=== PATIENT | male | born 1965 | race Caucasian/White ===

== ENCOUNTER 2016-05-12 14:05 | Inpatient (IN) | payer SELFPAY ==
[~2016-05-12] VITALS: Ht 188 cm; Wt 103.9 kg
[2016-05-12 14:52] LABS: HEMATOCRIT 36.9 % (38.0-50.0); MCH 32.4 PG (29.0-34.0); MCHC 36.3 G/DL (30.0-36.0); MCV 89.3 FL (86-99); MEAN PLAT.VOLUME 10.1 uM^3 (9.0-12.4); NRBC (%) 0.6 /100 WBC (0-0); PLATELET COUNT 52 K/uL (156-360); RBC DIS.WIDTH-CV 21.5 % (11.8-14.6); RBC DIS.WIDTH-SD 70.2 % (39-53); RED BLOOD COUNT 4.13 M/uL (4.00-5.50); WHITE BLOOD COUNT 4.6 K/uL (4.1-10.2)
[2016-05-12 15:03] LABS: INTER. NORMALIZED RATIO 1.9; PROTHROMBIN TIME 19.9 (9.2-11.2)
[2016-05-12 15:05] LABS: CHLORIDE 98 mEq/L (99-109); POTASSIUM 2.6 mEq/L (3.7-5.4); SODIUM 134 mEq/L (136-147)
[2016-05-12 15:07] LABS: GLUCOSE 146 mg/dL (70-99)
[2016-05-12 15:08] LABS: ANION GAP 15 MEQ/L (2-14)
[2016-05-12 15:09] LABS: TOTAL BILIRUBIN 8.5 mg/dL (0.0-1.0)
[2016-05-12 15:11] LABS: ALKALINE PHOSPHATASE 219 IU/L (3-129); GFR ESTIMATE (CALCULATED) > 59 mL/min/
[2016-05-12 15:12] LABS: UREA NITROGEN (BUN) 11 mg/dL (9-23)
[2016-05-12 15:13] LABS: TROP-I INTERPRETATION NEGATIVE; TROPONIN-I 0.04 ng/mL (0.0-0.30)
[2016-05-12 15:44] LABS: ANISOCYTOSIS 2+; EOSINOPHIL (%) 0.4 % (0-5); IMMATURE GRANULOCYTE (%) 1.1 % (0.0-0.7); IMMATURE GRANULOCYTE COUNT 0.1 K/uL; INSTRUMENT ABS NEUTROPHIL CT 2.4 K/uL; LYMPHOCYTE COUNT 1.6 K/uL (1.0-2.8); MACROCYTES 2+; MONOCYTE COUNT 0.5 K/uL (0-0.8); NEUTROPHIL (%) 51.6 % (45-76); NEUTROPHIL COUNT 2.4 K/uL (1.8-6.4); POIKILOCYTOSIS 1+
[2016-05-12] MEDS ORDERED: TYLENOL PM1 CAPLET PO (16:51)
[2016-05-12 17:50] LABS: TYPE OF FLUID PERITONEAL
[2016-05-12 18:25] LABS: MAGNESIUM 1.5 mg/dL (1.3-2.7)
[2016-05-12 18:30] LABS: BODY FLUID EOSINOPHILS 0 % (0-25); BODY FLUID RBC'S 2000 /MM^3 (0-100); BODY FLUID WBC'S 56 /MM^3 (0-500); MONONUCLEAR WBC'S 96 %; POLYNUCLEAR WBC'S 4 % (0-25)
[2016-05-12 21:19] VITALS: BP 135/77
[2016-05-12 23:38] VITALS: BP 132/78
[2016-05-13 03:33] VITALS: BP 138/77
[2016-05-13 06:14] LABS: ALKALINE PHOSPHATASE 159 IU/L (3-129); ANION GAP 11 MEQ/L (2-14); CHLORIDE 96 MEQ/L (99-109); DIRECT BILIRUBIN 4.7 mg/dL (0.0-0.3); GFR ESTIMATE (CALCULATED) > 59 mL/min/; POTASSIUM 2.7 MEQ/L (3.7-5.4); SAMPLE HEMOLYSIS CHECK 0; SAMPLE ICTERIC CHECK 2; SAMPLE LIPEMIA CHECK 0; SODIUM 134 MEQ/L (136-147); TOTAL BILIRUBIN 8.9 MG/DL (0.0-1.0); UREA NITROGEN (BUN) 10 mg/dL (9-23)
[2016-05-13 06:16] LABS: GLUCOSE 83 mg/dL (70-99)
[2016-05-13 06:37] LABS: EOSINOPHIL (%) 0.3 % (0-5); HEMATOCRIT 32.1 % (38.0-50.0); INSTRUMENT ABS NEUTROPHIL CT 1.5 K/uL; LYMPHOCYTE COUNT 1.1 K/uL (1.0-2.8); MCH 32.6 PG (29.0-34.0); MCHC 36.4 G/DL (30.0-36.0); MCV 89.4 FL (86-99); MONOCYTE (%) 8.2 % (3-12); MONOCYTE COUNT 0.2 K/uL (0-0.8); NEUTROPHIL COUNT 1.5 K/uL (1.8-6.4); NRBC (%) 0.7 /100 WBC (0-0); RBC DIS.WIDTH-SD 71.2 % (39-53); RED BLOOD COUNT 3.59 M/uL (4.00-5.50)
[2016-05-13 06:39] LABS: WHITE BLOOD COUNT 2.9 K/uL (4.1-10.2)
[2016-05-13 07:27] VITALS: BP 135/83
[2016-05-13 07:38] LABS: HEMATOLOGY COMMENT 1 SN; MEAN PLAT.VOLUME 11.8 uM^3 (9.0-12.4); PLATELET COUNT 31 K/uL (156-360)
[2016-05-13 07:39] LABS: PLAT.SUFFICIENCY VERY DECREASED
[2016-05-13 11:32] VITALS: BP 143/80
[2016-05-13 14:59] LABS: ANION GAP 8 MEQ/L (2-14); CHLORIDE 97 MEQ/L (99-109); GFR ESTIMATE (CALCULATED) > 59 mL/min/; POTASSIUM 3.2 MEQ/L (3.7-5.4); SAMPLE HEMOLYSIS CHECK 0; SAMPLE ICTERIC CHECK 2; SAMPLE LIPEMIA CHECK 0; SODIUM 131 MEQ/L (136-147); UREA NITROGEN (BUN) 10 mg/dL (9-23)
[2016-05-13 15:02] LABS: GLUCOSE 107 mg/dL (70-99)
[2016-05-13 15:52] VITALS: BP 144/86
[2016-05-13 16:41] LABS: TYPE OF FLUID PERITONEAL
[2016-05-13 17:11] LABS: BODY FLUID EOSINOPHILS 0 % (0-25); BODY FLUID RBC'S 3000 /MM^3 (0-100); BODY FLUID WBC'S 188 /MM^3 (0-500); MONONUCLEAR WBC'S 98 %; POLYNUCLEAR WBC'S 2 % (0-25)
[2016-05-13 17:37] LABS: BODY FLUID PROTEIN < 3.0 G/DL
[2016-05-13 20:00] VITALS: BP 158/80
[2016-05-14 01:00] VITALS: BP 143/84
[2016-05-14 04:29] VITALS: BP 137/72
[2016-05-14 07:15] LABS: INTER. NORMALIZED RATIO 2.4; PROTHROMBIN TIME 24.8 (9.2-11.2)
[2016-05-14 07:30] LABS: ALKALINE PHOSPHATASE 173 IU/L (3-129); ANION GAP 8 MEQ/L (2-14); CHLORIDE 100 MEQ/L (99-109); DIRECT BILIRUBIN 5.4 mg/dL (0.0-0.3); GFR ESTIMATE (CALCULATED) > 59 mL/min/; GLUCOSE 84 mg/dL (70-99); POTASSIUM 3.2 MEQ/L (3.7-5.4); SAMPLE HEMOLYSIS CHECK 0; SAMPLE ICTERIC CHECK 2; SAMPLE LIPEMIA CHECK 0; SODIUM 135 MEQ/L (136-147); TOTAL BILIRUBIN 10.3 MG/DL (0.0-1.0); UREA NITROGEN (BUN) 11 mg/dL (9-23)
[2016-05-14 07:33] LABS: HEMATOCRIT 32.9 % (38.0-50.0); MCH 32.7 PG (29.0-34.0); MCHC 35.9 G/DL (30.0-36.0); MCV 91.1 FL (86-99); RBC DIS.WIDTH-CV 21.8 % (11.8-14.6); RBC DIS.WIDTH-SD 72.4 % (39-53); RED BLOOD COUNT 3.61 M/uL (4.00-5.50)
[2016-05-14 07:38] LABS: WHITE BLOOD COUNT 1.9 K/uL (4.1-10.2)
[2016-05-14 07:57] LABS: IMM.PLATELET FRACTION 4.3 (1-7); PLAT.SUFFICIENCY DECREASED
[2016-05-14 08:25] VITALS: BP 128/81
[2016-05-14 09:39] LABS: PLATELET COUNT 27 K/uL (156-360)
[2016-05-14 11:45] VITALS: BP 129/75
[2016-05-14 14:49] LABS: MCH 32.1 PG (29.0-34.0); MCHC 34.6 G/DL (30.0-36.0); MCV 92.8 FL (86-99); NRBC (%) 0.9 /100 WBC (0-0); RBC DIS.WIDTH-CV 22.4 % (11.8-14.6); RBC DIS.WIDTH-SD 75.2 % (39-53); RED BLOOD COUNT 3.77 M/uL (4.00-5.50); WHITE BLOOD COUNT 2.1 K/uL (4.1-10.2)
[2016-05-14 15:59] LABS: ADD MIUA? YES; BILIRUBIN MODERATE; BLOOD MODERATE; GLUCOSE (STRIP) NEGATIVE; KETONES NEGATIVE; LEUKOCYTES TRACE; NITRITE POSITIVE; PROTEIN (STRIP) NEGATIVE
[2016-05-14 16:08] LABS: EOSINOPHIL (%) 0.5 % (0-5); IMM.PLATELET FRACTION 6.5 (1-7); IMMATURE GRANULOCYTE (%) 0.5 % (0.0-0.7); INSTRUMENT ABS NEUTROPHIL CT 1.3 K/uL; LYMPHOCYTE COUNT 0.5 K/uL (1.0-2.8); MONOCYTE (%) 10.3 % (3-12); MONOCYTE COUNT 0.2 K/uL (0-0.8); NEUTROPHIL (%) 62.4 % (45-76); NEUTROPHIL COUNT 1.3 K/uL (1.8-6.4)
[2016-05-14 16:18] LABS: PLATELET COUNT 30 K/uL (156-360)
[2016-05-14 17:02] LABS: COLOR DK YELLOW ((YELLOW))
[2016-05-14 17:19] LABS: ICTOTEST POSITIVE
[2016-05-14 18:16] LABS: EPITHELIAL CELLS RARE /HPF; RED BLOOD CELLS 20-30 /HPF (0-5); WHITE BLOOD CELLS 0-5 /HPF (0-5)
[2016-05-14 18:17] LABS: BACTERIA NONE SEEN /HPF; CASTS NONE SEEN /LPF; CRYSTALS NONE SEEN; MUCUS NONE SEEN /LPF; UCUL ADDED? NO
[2016-05-14 19:39] VITALS: BP 135/84
[2016-05-15 01:02] VITALS: BP 140/78
[2016-05-15 05:06] VITALS: BP 135/78
[2016-05-15 07:49] LABS: ALKALINE PHOSPHATASE 142 IU/L (3-129); ANION GAP 7 MEQ/L (2-14); CHLORIDE 101 MEQ/L (99-109); GFR ESTIMATE (CALCULATED) > 59 mL/min/; GLUCOSE 86 mg/dL (70-99); IRON 160 MCG/DL (35-150); POTASSIUM 3.4 MEQ/L (3.7-5.4); SAMPLE HEMOLYSIS CHECK 0; SAMPLE ICTERIC CHECK 2; SAMPLE LIPEMIA CHECK 0; SODIUM 133 MEQ/L (136-147); TOTAL BILIRUBIN 10.3 MG/DL (0.0-1.0); UREA NITROGEN (BUN) 11 mg/dL (9-23)
[2016-05-15 08:08] LABS: HEMATOCRIT 33.1 % (38.0-50.0); MCH 32.5 PG (29.0-34.0); MCHC 35.3 G/DL (30.0-36.0); MCV 91.9 FL (86-99); RBC DIS.WIDTH-CV 22.1 % (11.8-14.6); WHITE BLOOD COUNT 2.2 K/uL (4.1-10.2)
[2016-05-15 08:16] VITALS: BP 141/81
[2016-05-15 08:22] LABS: IMM.PLATELET FRACTION 4.1 (1-7); PLAT.SUFFICIENCY VERY DECREASED; PLATELET COUNT 24 K/uL (156-360)
[2016-05-15 12:04] VITALS: BP 126/68
[2016-05-15] MEDS ORDERED: SERTRALINE HCL50 MG PO (14:33)
[2016-05-15] MEDS ORDERED: Chronulac,Cephulac,E PO ×2 (14:33→19:22)
[2016-05-15] MEDS ORDERED: XIFAXAN550 MG PO (14:33)
[2016-05-15] MEDS ORDERED: FOLIC ACID1 MG PO (14:33)
[2016-05-15] MEDS ORDERED: PANTOPRAZOLE SO40 MG PO (14:33)
[2016-05-15] MEDS ORDERED: CHLORDIAZEPOXID25 MG PO (14:33)
[2016-05-15 15:13] VITALS: BP 137/68
== END 2016-05-15 16:20 | disposition home or self-care (01) | DRG 433 ==
LOC: EME 14:05 → EDOF 17:56 → 5SOUTH 17:56
PROVIDERS: Anesthesiology; Emergency Medicine; Family Medicine; Internal Medicine; Internal Medicine Gastroenterology; Radiology Diagnostic Radiology
PROC: 0W9G30Z Drainage of Peritoneal Cavity with Drainage Device, Percutaneous Approach (ICD-10-PCS; principal; 2016-05-12)
DX: K70.31 Alcoholic cirrhosis of liver with ascites (principal); K70.11 Alcoholic hepatitis with ascites; F10.239 Alcohol dependence with withdrawal, unspecified; C18.9 Malignant neoplasm of colon, unspecified; D61.818 Other pancytopenia; E87.6 Hypokalemia; K72.90 Hepatic failure, unspecified without coma; I50.9 Heart failure, unspecified; G89.29 Other chronic pain; F17.210 Nicotine dependence, cigarettes, uncomplicated; Z85.038 Personal history of other malignant neoplasm of large intestine; Z91.018 Allergy to other foods; Z88.8 Allergy status to other drugs, medicaments and biological substances; D69.6 Thrombocytopenia, unspecified
CPT/HCPCS: 71010; 74176; 80048; 80048 91; 80053; 80069; 80076; 81003; 82140; 82272; 82607; 82746; 83540; 83605; 83735; 83880; 84157; 84443; 84466; 84484; 85025; 85027; 85610; 87040; 87070; 87075; 87205; 88108; 89051; 93005; 99281; 99285; J0696; J1644; J1940; J2060; J3430; J3475; J3480; J7050

== ENCOUNTER 2016-10-28 07:39 | Emergency (ER) | payer OTHER ==
[~2016-10-28] VITALS: Ht 188 cm; Wt 118.5 kg
[~2016-10-28 07:39] MED LIST: CHLORDIAZEPOXID25 MG PO; Chronulac,Cephulac,E PO; FOLIC ACID1 MG PO; PANTOPRAZOLE SO40 MG PO; SERTRALINE HCL50 MG PO; TYLENOL PM1 CAPLET PO; XIFAXAN550 MG PO
[2016-10-28 08:42] LABS: EOSINOPHIL COUNT 0.1 K/uL (0-0.3); HEMATOCRIT 33.7 % (38.0-50.0); IMMATURE GRANULOCYTE (%) 0.3 % (0.0-0.7); INSTRUMENT ABS NEUTROPHIL CT 1.7 K/uL; LYMPHOCYTE COUNT 0.9 K/uL (1.0-2.8); MCH 30.9 PG (29.0-34.0); MCHC 33.2 G/DL (30.0-36.0); MCV 93.1 FL (86-99); MEAN PLAT.VOLUME 10.7 uM^3 (9.0-12.4); MONOCYTE COUNT 0.3 K/uL (0-0.8); NEUTROPHIL (%) 55.1 % (45-76); NEUTROPHIL COUNT 1.7 K/uL (1.8-6.4); PLATELET COUNT 57 K/uL (156-360); RBC DIS.WIDTH-CV 13.2 % (11.8-14.6); RBC DIS.WIDTH-SD 45.8 % (39-53); RED BLOOD COUNT 3.62 M/uL (4.00-5.50)
[2016-10-28 08:50] LABS: INTER. NORMALIZED RATIO 1.7; PROTHROMBIN TIME 18.6 SEC (10.2-12.9)
[2016-10-28 09:06] LABS: ANION GAP 5 MEQ/L (2-14); CHLORIDE 109 MEQ/L (99-109); POTASSIUM 3.9 MEQ/L (3.7-5.4); SAMPLE HEMOLYSIS CHECK 0; SAMPLE ICTERIC CHECK 0; SAMPLE LIPEMIA CHECK 0; SODIUM 136 MEQ/L (136-147)
[2016-10-28 09:08] LABS: TOTAL BILIRUBIN 1.8 MG/DL (0.0-1.0)
[2016-10-28 09:12] LABS: ALKALINE PHOSPHATASE 139 IU/L (3-129); GFR ESTIMATE (CALCULATED) > 59 mL/min/; GLUCOSE 93 mg/dL (70-99); LIPASE 25 U/L (1.0-51.0); UREA NITROGEN (BUN) 8 mg/dL (9-23)
[2016-10-28 11:16] VITALS: BP 138/78
== END 2016-10-28 11:17 | disposition home or self-care (01) ==
LOC: EME 07:39
PROVIDERS: Emergency Medicine
DX: K74.60 Unspecified cirrhosis of liver (principal); R10.9 Unspecified abdominal pain; Z85.038 Personal history of other malignant neoplasm of large intestine; Z90.49 Acquired absence of other specified parts of digestive tract; F17.200 Nicotine dependence, unspecified, uncomplicated
CPT/HCPCS: 80053; 83690; 85025; 85610; 99281; 99284

== ENCOUNTER 2017-05-20 12:29 | Emergency (ER) | payer BC ==
[~2017-05-20] VITALS: Ht 188 cm; Wt 122.9 kg
[2017-05-20 13:25] LABS: BASOPHIL (%) 0.8 % (0-1); EOSINOPHIL (%) 0.6 % (0-5); HEMATOCRIT 40.1 % (38.0-50.0); HEMOGLOBIN 14.1 G/DL (12.5-16.6); IMMATURE GRANULOCYTE (%) 0.8 % (0.0-0.7); LYMPHOCYTE (%) 27.3 % (15-42); LYMPHOCYTE COUNT 1.4 K/uL (1.0-2.8); MCH 31.8 PG (29.0-34.0); MCHC 35.2 G/DL (30.0-36.0); MCV 90.5 FL (86-99); MONOCYTE (%) 8.5 % (3-12); MONOCYTE COUNT 0.4 K/uL (0-0.8); NEUTROPHIL COUNT 3.1 K/uL (1.8-6.4); NRBC (%) 0.4 /100 WBC (0-0); RBC DIS.WIDTH-CV 19.6 % (11.8-14.6); RBC DIS.WIDTH-SD 64.6 % (39-53); RED BLOOD COUNT 4.43 M/uL (4.00-5.50); WHITE BLOOD COUNT 4.9 K/uL (4.1-10.2)
[2017-05-20 13:33] LABS: CHLORIDE 102 mEq/L (99-109); POTASSIUM 3.5 mEq/L (3.7-5.4); SODIUM 139 mEq/L (136-147)
[2017-05-20 13:36] LABS: GLUCOSE 118 mg/dL (70-99); TOTAL PROTEIN 6.8 g/dL (6.4-8.3)
[2017-05-20 13:37] LABS: TOTAL BILIRUBIN 7.9 mg/dL (0.0-1.0)
[2017-05-20 13:39] LABS: ALKALINE PHOSPHATASE 233 IU/L (3-129); CREATININE 0.9 mg/dL (0.6-1.3); GFR ESTIMATE (CALCULATED) > 59 mL/min/ (58.99-99999)
[2017-05-20 13:40] LABS: UREA NITROGEN (BUN) 7 mg/dL (9-23)
[2017-05-20 13:41] LABS: AST (GOT) 157 IU/L (2-34)
[2017-05-20 13:42] LABS: ALT (GPT) 36 IU/L (3-49)
[2017-05-20 14:10] LABS: ABS NEUTROPHIL COUNT 4.5; ANISOCYTOSIS 2+; ATYPICAL LYMPHOCYTE 0.9 %; BAND NEUTROPHILS 3.7 % (0-8.0); BASOPHILS 0.9 %; BURR CELLS 2+; EOSINOPHIL ABS CT 0; IMM.PLATELET FRACTION 4.5 (1-7); LYMPHOCYTES 4.6 % (15.0-45.0); MACROCYTES 2+; METAMYELOCYTES 0.9 %; MONOCYTES 1.8 % (0-9.0); PLAT.SUFFICIENCY DECREASED; PLATELET COUNT 48 K/uL (156-360); POIKILOCYTOSIS 2+; SEG.NEUTROPHILS 87.2 % (46.0-76.0)
[2017-05-20 18:42] VITALS: BP 139/69
== END 2017-05-20 18:45 | disposition home or self-care (01) ==
LOC: EME 12:29
PROVIDERS: Physician Assistant Medical
DX: K70.31 Alcoholic cirrhosis of liver with ascites (principal); E80.6 Other disorders of bilirubin metabolism; Z76.82 Awaiting organ transplant status; Z85.038 Personal history of other malignant neoplasm of large intestine; F17.200 Nicotine dependence, unspecified, uncomplicated; Z88.8 Allergy status to other drugs, medicaments and biological substances
CPT/HCPCS: 49083; 80053; 85025; 85610; 99281; 99284

== ENCOUNTER 2017-06-09 19:55 | Inpatient (IN) | payer BC ==
[~2017-06-09] VITALS: Ht 188 cm; Wt 122.0 kg
[2017-06-09 20:35] LABS: HEMATOCRIT 39.8 % (38.0-50.0); HEMOGLOBIN 14.6 G/DL (12.5-16.6); MCH 34.1 PG (29.0-34.0); MCHC 36.7 G/DL (30.0-36.0); NRBC (%) 0.4 /100 WBC (0-0); RBC DIS.WIDTH-CV 19.7 % (11.8-14.6); RBC DIS.WIDTH-SD 67.6 % (39-53); RED BLOOD COUNT 4.28 M/uL (4.00-5.50); WHITE BLOOD COUNT 13.1 K/uL (4.1-10.2)
[2017-06-09 20:36] LABS: PLATELET COUNT 73 K/uL (156-360)
[2017-06-09 20:39] LABS: INTER. NORMALIZED RATIO 1.8
[2017-06-09 20:42] LABS: PTT 41.2 SEC (25-37)
[2017-06-09 21:00] LABS: TROP-I INTERPRETATION NEGATIVE; TROPONIN-I 0.04 ng/mL (0.0-0.30)
[2017-06-09 21:01] LABS: ALKALINE PHOSPHATASE 172 IU/L (3-129); ALT (GPT) 52 IU/L (3-49); AST (GOT) 235 IU/L (2-34); CHLORIDE 87 MEQ/L (99-109); CREATININE 1.5 MG/DL (0.6-1.3); GFR ESTIMATE (CALCULATED) 52 mL/min/ (58.99-99999); GLUCOSE 135 mg/dL (70-99); LIPASE 73 U/L (1.0-51.0); POTASSIUM 3.9 MEQ/L (3.7-5.4); SODIUM 122 MEQ/L (136-147); TOTAL BILIRUBIN 14.9 MG/DL (0.0-1.0); TOTAL PROTEIN 6.7 G/DL (6.4-8.3); UREA NITROGEN (BUN) 18 mg/dL (9-23)
[2017-06-09 21:12] LABS: SERUM ETHYL ALCOHOL 343 mg/dL
[2017-06-09 23:42] LABS: APPEARANCE SL.HAZY ((CLEAR)); BILIRUBIN MODERATE; BLOOD LARGE; COLOR AMBER ((YELLOW)); GLUCOSE (STRIP) 50; KETONES NEGATIVE; LEUKOCYTES NEGATIVE; NITRITE NEGATIVE; PROTEIN (STRIP) 30; SPECIFIC GRAVITY 1.018 (1.000-1.030)
[2017-06-09 23:47] LABS: AMPHETAMINE NEGATIVE (500 ng/mL); BARBITURATES NEGATIVE (200 ng/mL); BENZODIAZEPINES NEGATIVE (150 ng/mL); BUPRENORPHINE NEGATIVE (10 ng/mL); COCAINE NEGATIVE (150 ng/mL); METHADONE NEGATIVE (200 ng/mL); METHAMPHETAMINE NEGATIVE (500 ng/mL); OPIATES (MORPHINE) NEGATIVE (100 ng/mL); OXYCODONE NEGATIVE (100 ng/mL); PHENCYCLIDINE NEGATIVE (25 ng/mL); PROPOXYPHENE NEGATIVE (300 ng/mL); THC CANNABINOIDS NEGATIVE (50 ng/mL); TRICYCLIC ANTIDEPRESSANTS NEGATIVE (300 ng/mL)
[2017-06-09 23:49] LABS: ICTOTEST ND
[2017-06-10] VITALS (7 sets, daily range): BP systolic 121–170; BP diastolic 62–84
[2017-06-10 00:01] LABS: EPITHELIAL CELLS RARE /HPF; WHITE BLOOD CELLS 0-5 /HPF (0-5)
[2017-06-10 00:09] LABS: BACTERIA RARE /HPF; MUCUS NONE SEEN /LPF; UCUL ADDED? NO
[2017-06-10] MEDS ORDERED: [UNRECOGNIZED DRUG - REMARK] PO (01:23)
[2017-06-10 08:21] LABS: CARBON DIOXIDE (BICARBONATE) 21.3 MEQ/L (20-31)
[2017-06-10 08:33] LABS: HEMATOCRIT 34.6 % (38.0-50.0); MCH 33.6 PG (29.0-34.0); MCHC 35.5 G/DL (30.0-36.0); MCV 94.5 FL (86-99); NRBC (%) 0.3 /100 WBC (0-0); PLATELET COUNT 67 K/uL (156-360); RBC DIS.WIDTH-CV 20.2 % (11.8-14.6); RBC DIS.WIDTH-SD 70.3 % (39-53); RED BLOOD COUNT 3.66 M/uL (4.00-5.50); WHITE BLOOD COUNT 11.9 K/uL (4.1-10.2)
[2017-06-10 08:59] LABS: HEMOGLOBIN 12.3 G/DL (12.5-16.6)
[2017-06-10 09:15] LABS: ALBUMIN 2.6 G/DL (3.2-4.8); ALKALINE PHOSPHATASE 148 IU/L (3-129); ALT (GPT) 46 IU/L (3-49); AST (GOT) 203 IU/L (2-34); CHLORIDE 95 MEQ/L (99-109); CREATININE 1.2 MG/DL (0.6-1.3); GFR ESTIMATE (CALCULATED) > 59 mL/min/ (58.99-99999); POTASSIUM 4.6 MEQ/L (3.7-5.4); SODIUM 125 MEQ/L (136-147); TOTAL BILIRUBIN 15.3 MG/DL (0.0-1.0); UREA NITROGEN (BUN) 19 mg/dL (9-23)
[2017-06-10 09:32] LABS: GLUCOSE 97 mg/dL (70-99); TOTAL PROTEIN 5.5 G/DL (6.4-8.3)
[2017-06-10 11:39] LABS: MAGNESIUM 1.6 mg/dl (1.3-2.7); PHOSPHORUS 1.8 mg/dL (2.5-4.9)
[2017-06-10 15:47] LABS: URIC ACID 6.5 mg/dL (3.1-9.2)
[2017-06-10 16:01] LABS: CHLORIDE 95 MEQ/L (99-109); POTASSIUM 4.1 MEQ/L (3.7-5.4); SODIUM 125 MEQ/L (136-147)
[2017-06-10 16:16] LABS: CREATININE 1.1 MG/DL (0.6-1.3); GFR ESTIMATE (CALCULATED) > 59 mL/min/ (58.99-99999); GLUCOSE 106 mg/dL (70-99); UREA NITROGEN (BUN) 18 mg/dL (9-23)
[2017-06-11] VITALS (7 sets, daily range): BP systolic 117–157; BP diastolic 55–78
[2017-06-11 05:57] LABS: ALBUMIN 2.6 G/DL (3.2-4.8); ALT (GPT) 38 IU/L (3-49); AST (GOT) 171 IU/L (2-34); CHLORIDE 97 MEQ/L (99-109); GFR ESTIMATE (CALCULATED) > 59 mL/min/ (58.99-99999); GLUCOSE 87 mg/dL (70-99); POTASSIUM 3.9 MEQ/L (3.7-5.4); SODIUM 128 MEQ/L (136-147); TOTAL BILIRUBIN 16.5 MG/DL (0.0-1.0); TOTAL PROTEIN 5.1 G/DL (6.4-8.3); UREA NITROGEN (BUN) 18 mg/dL (9-23)
[2017-06-11 06:04] LABS: ALKALINE PHOSPHATASE 106 IU/L (3-129)
[2017-06-11 06:30] LABS: BASOPHIL (%) 0.3 % (0-1); EOSINOPHIL (%) 0.3 % (0-5); HEMATOCRIT 30.2 % (38.0-50.0); HEMOGLOBIN 10.8 G/DL (12.5-16.6); LYMPHOCYTE (%) 27.7 % (15-42); LYMPHOCYTE COUNT 0.8 K/uL (1.0-2.8); MCH 34.3 PG (29.0-34.0); MCHC 35.8 G/DL (30.0-36.0); MCV 95.9 FL (86-99); MONOCYTE (%) 7.9 % (3-12); MONOCYTE COUNT 0.2 K/uL (0-0.8); NEUTROPHIL (%) 62.8 % (45-76); NEUTROPHIL COUNT 1.8 K/uL (1.8-6.4); RBC DIS.WIDTH-SD 70.1 % (39-53); RED BLOOD COUNT 3.15 M/uL (4.00-5.50); WHITE BLOOD COUNT 2.9 K/uL (4.1-10.2)
[2017-06-11 06:40] LABS: IMM.PLATELET FRACTION 5.5 (1-7); PLAT.SUFFICIENCY VERY DECREASED
[2017-06-11 06:44] LABS: PLATELET COUNT 27 K/uL (156-360)
[2017-06-11] MEDS ORDERED: CEFTRIAXONE2 G1 IV (07:46)
[2017-06-11] MEDS ORDERED: INDERAL10 MG PO (07:46)
[2017-06-11] MEDS ORDERED: XIFAXAN200 MG PO (07:46)
[2017-06-11 07:47] LABS: MAGNESIUM 1.6 mg/dl (1.3-2.7)
[2017-06-11] MEDS ORDERED: PROTONIX IV40 MG IV (07:47)
[2017-06-11] MEDS ORDERED: ESCITALOPRAM OXA5 MG PO (07:47)
[2017-06-11] MEDS ORDERED: FUROSEMIDE20 MG PO (07:47)
[2017-06-11 07:51] LABS: INTER. NORMALIZED RATIO 1.9
[2017-06-11 08:28] LABS: URIC ACID 5.3 mg/dL (3.1-9.2)
[2017-06-11 08:30] LABS: UR CREATININE CONCENTRATION 143.2 MG/DL
== END 2017-06-11 16:30 | disposition short-term general hospital (02) | DRG 433 ==
LOC: EME 19:55 → 4EAST 06-10 01:09 → EDOF 06-10 01:09 → ENRESERV 06-10 01:17 → 4EAST 06-10 02:26 → ENPENDDIS 06-11 15:00 → 4EAST 06-11 16:30
PROVIDERS: Emergency Medicine; Hospitalist; Internal Medicine; Internal Medicine Gastroenterology; Internal Medicine Nephrology
PROC: 0W9G3ZZ Drainage of Peritoneal Cavity, Percutaneous Approach (ICD-10-PCS; principal; 2017-06-10)
DX: K70.31 Alcoholic cirrhosis of liver with ascites (principal); K72.90 Hepatic failure, unspecified without coma; K70.11 Alcoholic hepatitis with ascites; I85.00 Esophageal varices without bleeding; R45.851 Suicidal ideations; E87.1 Hypo-osmolality and hyponatremia; F32.9 Major depressive disorder, single episode, unspecified; K59.00 Constipation, unspecified; N17.9 Acute kidney failure, unspecified; K92.0 Hematemesis; E83.39 Other disorders of phosphorus metabolism; R74.0 Nonspecific elevation of levels of transaminase and lactic acid dehydrogenase [LDH]; E87.2 Acidosis; D61.818 Other pancytopenia; K80.20 Calculus of gallbladder without cholecystitis without obstruction; D72.829 Elevated white blood cell count, unspecified; E87.70 Fluid overload, unspecified; E88.09 Other disorders of plasma-protein metabolism, not elsewhere classified; K76.6 Portal hypertension; Y90.8 Blood alcohol level of 240 mg/100 ml or more; N13.2 Hydronephrosis with renal and ureteral calculous obstruction; Z86.718 Personal history of other venous thrombosis and embolism; Z83.3 Family history of diabetes mellitus; Z80.8 Family history of malignant neoplasm of other organs or systems; Z91.19 Patient's noncompliance with other medical treatment and regimen; Z88.8 Allergy status to other drugs, medicaments and biological substances; Z85.038 Personal history of other malignant neoplasm of large intestine; Z90.49 Acquired absence of other specified parts of digestive tract; Z80.2 Family history of malignant neoplasm of other respiratory and intrathoracic organs; Z91.14 Patient's other noncompliance with medication regimen; Z87.442 Personal history of urinary calculi
CPT/HCPCS: 36600; 49083; 74176; 78227; 80048 91; 80053; 81003; 82140; 82272; 82306; 82570; 82803; 83605; 83690; 83735; 83880; 83935; 84100; 84300; 84484; 84550; 85025; 85027; 85610; 85730; 86850; 86900; 86901; 87040; 89051; 93005; 93970; 99281; 99285; A9537; C9113; G0480; J0692; J0696; J2060; J2354; J2405; J2805; J3411; J3430; J3475; J7030; J7050; P9017; P9047

== ENCOUNTER 2017-06-29 19:53 | Inpatient (IN) | payer BC ==
[~2017-06-29] VITALS: Ht 188 cm; Wt 110.4 kg
[~2017-06-29 19:53] MED LIST changes: +CEFTRIAXONE2 G1 IV; +ESCITALOPRAM OXA5 MG PO; +FUROSEMIDE20 MG PO; +INDERAL10 MG PO; +PROTONIX IV40 MG IV; +XIFAXAN200 MG PO; +[UNRECOGNIZED DRUG - REMARK] PO
[2017-06-29 20:47] LABS: HEMATOCRIT 33.5 % (38.0-50.0); MCH 35.9 PG (29.0-34.0); MCHC 35.8 G/DL (30.0-36.0); MCV 100.3 FL (86-99); RBC DIS.WIDTH-CV 18.9 % (11.8-14.6); RBC DIS.WIDTH-SD 70.3 % (39-53); RED BLOOD COUNT 3.34 M/uL (4.00-5.50); WHITE BLOOD COUNT 14.5 K/uL (4.1-10.2)
[2017-06-29 20:55] LABS: ALBUMIN 2.3 g/dL (3.2-4.8); CHLORIDE 95 mEq/L (99-109)
[2017-06-29 20:56] LABS: POTASSIUM 4.5 mEq/L (3.7-5.4); SODIUM 125 mEq/L (136-147)
[2017-06-29 20:57] LABS: INTER. NORMALIZED RATIO 1.9
[2017-06-29 20:58] LABS: GLUCOSE 108 mg/dL (70-99); TOTAL PROTEIN 5.5 g/dL (6.4-8.3)
[2017-06-29 21:00] LABS: TOTAL BILIRUBIN 20.3 mg/dL (0.0-1.0)
[2017-06-29 21:01] LABS: ALKALINE PHOSPHATASE 126 IU/L (3-129); CREATININE 2.3 mg/dL (0.6-1.3); GFR ESTIMATE (CALCULATED) 32 mL/min/ (58.99-99999)
[2017-06-29 21:03] LABS: AST (GOT) 95 IU/L (2-34)
[2017-06-29 21:04] LABS: ALT (GPT) 54 IU/L (3-49)
[2017-06-29 21:05] LABS: LIPASE 33 U/L (1.0-51.0)
[2017-06-29 21:07] LABS: TROP-I INTERPRETATION NEGATIVE; TROPONIN-I 0.01 ng/mL (0.0-0.30)
[2017-06-29 21:08] LABS: UREA NITROGEN (BUN) 53 mg/dL (9-23)
[2017-06-29] MEDS ORDERED: LEXAPRO5 MG PO (21:21)
[2017-06-29] MEDS ORDERED: XIFAXAN200 MG PO (21:23)
[2017-06-29 21:27] LABS: ABS NEUTROPHIL COUNT 12.2; ANISOCYTOSIS 3+; ATYPICAL LYMPHOCYTE 0.9 %; EOSINOPHIL ABS CT 0.1; EOSINOPHILS 0.9 % (0-5.0); LYMPHOCYTES 7.9 % (15.0-45.0); MACROCYTES 3+; METAMYELOCYTES 0.9 %; MONOCYTES 5.3 % (0-9.0); PLAT.SUFFICIENCY DECREASED; PLATELET COUNT 72 K/uL (156-360); POIKILOCYTOSIS 2+; SCHISTOCYTES 1+; SEG.NEUTROPHILS 76.1 % (46.0-76.0)
[2017-06-29] MEDS ORDERED: LACTULOSE10 GM/151 PO (21:27)
[2017-06-29] MEDS ORDERED: PREDNISOLO15 MG/5 M1 PO (21:29)
[2017-06-29] MEDS ORDERED: ALDACTONE50 MG PO (21:31)
[2017-06-30 00:15] LABS: TYPE OF FLUID PERITONEAL
[2017-06-30 00:51] LABS: APPEARANCE CLEAR-YELLOW; BODY FLUID RBC'S 1000 /MM^3 (0-100); BODY FLUID WBC'S 73 /MM^3 (0-500)
[2017-06-30 01:19] LABS: BODY FLUID LDH < 25 IU/L
[2017-06-30 01:28] LABS: BODY FLUID EOSINOPHILS 2 % (0-25); MONONUCLEAR WBC'S 83 %; POLYNUCLEAR WBC'S 15 % (0-25)
[2017-06-30 01:40] VITALS: BP 113/57
[2017-06-30 08:15] VITALS: BP 102/56
[2017-06-30 10:07] LABS: CHLORIDE 97 MEQ/L (99-109); CREATININE 2.4 MG/DL (0.6-1.3); GFR ESTIMATE (CALCULATED) 30 mL/min/ (58.99-99999); GLUCOSE 108 mg/dL (70-99); POTASSIUM 4.1 MEQ/L (3.7-5.4); SODIUM 128 MEQ/L (136-147); UREA NITROGEN (BUN) 59 mg/dL (9-23)
[2017-06-30 12:26] LABS: UR CREATININE CONCENTRATION 164.7 MG/DL
[2017-06-30 17:00] VITALS: BP 105/52
[2017-06-30 20:15] LABS: CHLORIDE 98 MEQ/L (99-109); CREATININE 2.1 MG/DL (0.6-1.3); GFR ESTIMATE (CALCULATED) 35 mL/min/ (58.99-99999); GLUCOSE 119 mg/dL (70-99); POTASSIUM 3.7 MEQ/L (3.7-5.4); SODIUM 129 MEQ/L (136-147); UREA NITROGEN (BUN) 60 mg/dL (9-23)
[2017-06-30 23:58] VITALS: BP 112/58
[2017-07-01 06:25] LABS: ALBUMIN 2.9 G/DL (3.2-4.8); CHLORIDE 99 MEQ/L (99-109); GFR ESTIMATE (CALCULATED) 37 mL/min/ (58.99-99999); GLUCOSE 92 mg/dL (70-99); PHOSPHORUS 2.6 mg/dL (2.5-4.9); POTASSIUM 3.4 MEQ/L (3.7-5.4); SODIUM 131 MEQ/L (136-147); UREA NITROGEN (BUN) 60 mg/dL (9-23)
[2017-07-01 07:17] LABS: ALBUMIN 2.7 G/DL (3.2-4.8); ALT (GPT) 28 IU/L (3-49); AST (GOT) 56 IU/L (2-34); CHLORIDE 99 MEQ/L (99-109); GFR ESTIMATE (CALCULATED) 37 mL/min/ (58.99-99999); GLUCOSE 90 mg/dL (70-99); POTASSIUM 3.4 MEQ/L (3.7-5.4); SODIUM 131 MEQ/L (136-147); TOTAL BILIRUBIN 18.2 MG/DL (0.0-1.0); TOTAL PROTEIN 4.6 G/DL (6.4-8.3); UREA NITROGEN (BUN) 60 mg/dL (9-23)
[2017-07-01 07:18] LABS: ALKALINE PHOSPHATASE 70 IU/L (3-129)
[2017-07-01 08:05] VITALS: BP 111/55
[2017-07-01 16:37] VITALS: BP 126/57
[2017-07-01 21:30] VITALS: BP 123/57
[2017-07-02 00:23] VITALS: BP 104/51
[2017-07-02 06:13] LABS: HEMATOCRIT 24.5 % (38.0-50.0); MCHC 35.1 G/DL (30.0-36.0); MCV 102.5 FL (86-99); RBC DIS.WIDTH-SD 68.1 % (39-53); WHITE BLOOD COUNT 6.8 K/uL (4.1-10.2)
[2017-07-02 06:17] LABS: HEMOGLOBIN 8.6 G/DL (12.5-16.6); RED BLOOD COUNT 2.39 M/uL (4.00-5.50)
[2017-07-02 06:20] LABS: ALBUMIN 2.8 G/DL (3.2-4.8); CHLORIDE 103 MEQ/L (99-109); GFR ESTIMATE (CALCULATED) 37 mL/min/ (58.99-99999); GLUCOSE 104 mg/dL (70-99); PHOSPHORUS 1.9 mg/dL (2.5-4.9); POTASSIUM 3.7 MEQ/L (3.7-5.4); SODIUM 133 MEQ/L (136-147); UREA NITROGEN (BUN) 57 mg/dL (9-23)
[2017-07-02 07:40] LABS: IMM.PLATELET FRACTION 3.5 (1-7); PLAT.SUFFICIENCY DECREASED
[2017-07-02 07:42] LABS: PLATELET COUNT 40 K/uL (156-360)
[2017-07-02 07:46] VITALS: BP 108/58
[2017-07-02 15:27] VITALS: BP 126/68
[2017-07-02 15:31] LABS: TYPE OF FLUID PERITONEAL
[2017-07-02 15:48] LABS: APPEARANCE CLEAR-YELLOW; BODY FLUID RBC'S 2000 /MM^3 (0-100); BODY FLUID WBC'S 110 /MM^3 (0-500)
[2017-07-02 16:37] LABS: BODY FLUID EOSINOPHILS 2 % (0-25); MONONUCLEAR WBC'S 84 %; POLYNUCLEAR WBC'S 14 % (0-25)
[2017-07-02 17:01] LABS: BODY FLUID AMYLASE < 10 U/L; BODY FLUID LDH 30 IU/L; BODY FLUID PROTEIN < 3.0 G/DL
[2017-07-02 17:20] VITALS: BP 119/59
[2017-07-02 22:53] LABS: BODY FLUID PH 8.1 (())
[2017-07-03 00:02] VITALS: BP 115/63
[2017-07-03 05:51] LABS: HEMATOCRIT 24.4 % (38.0-50.0); HEMOGLOBIN 8.5 G/DL (12.5-16.6); MCHC 34.8 G/DL (30.0-36.0); MCV 103.4 FL (86-99); RBC DIS.WIDTH-CV 17.6 % (11.8-14.6); RBC DIS.WIDTH-SD 66.6 % (39-53); RED BLOOD COUNT 2.36 M/uL (4.00-5.50); WHITE BLOOD COUNT 6.6 K/uL (4.1-10.2)
[2017-07-03 06:15] LABS: ALBUMIN 2.9 G/DL (3.2-4.8); CHLORIDE 104 MEQ/L (99-109); CREATININE 1.6 MG/DL (0.6-1.3); GFR ESTIMATE (CALCULATED) 48 mL/min/ (58.99-99999); GLUCOSE 93 mg/dL (70-99); PHOSPHORUS 2.3 mg/dL (2.5-4.9); POTASSIUM 3.7 MEQ/L (3.7-5.4); SODIUM 134 MEQ/L (136-147); UREA NITROGEN (BUN) 41 mg/dL (9-23)
[2017-07-03 06:29] LABS: IMM.PLATELET FRACTION 3.9 (1-7); PLAT.SUFFICIENCY DECREASED; PLATELET COUNT 39 K/uL (156-360)
[2017-07-03 07:37] VITALS: BP 114/55
[2017-07-03 16:19] VITALS: BP 117/67
[2017-07-03 23:09] VITALS: BP 112/56
[2017-07-04 06:55] LABS: ALBUMIN 2.8 G/DL (3.2-4.8); CHLORIDE 104 MEQ/L (99-109); CREATININE 1.4 MG/DL (0.6-1.3); GFR ESTIMATE (CALCULATED) 56 mL/min/ (58.99-99999); GLUCOSE 97 mg/dL (70-99); PHOSPHORUS 2.2 mg/dL (2.5-4.9); POTASSIUM 3.5 MEQ/L (3.7-5.4); SODIUM 134 MEQ/L (136-147); UREA NITROGEN (BUN) 35 mg/dL (9-23)
[2017-07-04 07:28] VITALS: BP 105/54
[2017-07-04] MEDS ORDERED: XIFAXAN550 MG PO (10:03)
== END 2017-07-04 11:46 | disposition home or self-care (01) | DRG 441 ==
LOC: EME 19:53 → EDOF 06-30 00:27 → 5SOUTH 06-30 00:27 → ENRESERV 06-30 00:34 → 5SOUTH 06-30 01:22
PROVIDERS: Emergency Medicine; Hospitalist; Internal Medicine; Internal Medicine Nephrology
PROC: 0W9G3ZZ Drainage of Peritoneal Cavity, Percutaneous Approach (ICD-10-PCS; principal; 2017-07-02)
DX: K76.7 Hepatorenal syndrome (principal); N17.0 Acute kidney failure with tubular necrosis; R65.10 Systemic inflammatory response syndrome (SIRS) of non-infectious origin without acute organ dysfunction; F10.20 Alcohol dependence, uncomplicated; E86.0 Dehydration; E87.1 Hypo-osmolality and hyponatremia; E87.6 Hypokalemia; E87.0 Hyperosmolality and hypernatremia; F17.200 Nicotine dependence, unspecified, uncomplicated; K70.11 Alcoholic hepatitis with ascites; K72.90 Hepatic failure, unspecified without coma; Z85.038 Personal history of other malignant neoplasm of large intestine; Z90.49 Acquired absence of other specified parts of digestive tract; Z86.718 Personal history of other venous thrombosis and embolism; K70.31 Alcoholic cirrhosis of liver with ascites
CPT/HCPCS: 49083; 80048; 80048 91; 80053; 80069; 81003; 82140; 82150 91; 82570; 83605; 83615 91; 83690; 83735; 83986 90; 84157; 84300; 84484; 85025; 85027; 85610; 87040; 87070; 87075; 87205; 88108; 89051; 99281; 99285; J0696; J7030; P9047

== ENCOUNTER 2017-07-26 10:28 | Emergency (ER) | payer BC ==
[~2017-07-26] VITALS: Ht 188 cm; Wt 117.7 kg
[~2017-07-26 10:28] MED LIST changes: +ALDACTONE50 MG PO; +LACTULOSE10 GM/151 PO; +LEXAPRO5 MG PO; +PREDNISOLO15 MG/5 M1 PO
[2017-07-26 12:49] LABS: INTER. NORMALIZED RATIO 2.1
[2017-07-26 12:52] LABS: PTT 44.3 SEC (25-37)
[2017-07-26 12:54] LABS: HEMATOCRIT 30.3 % (38.0-50.0); HEMOGLOBIN 10.2 G/DL (12.5-16.6); MCH 36.6 PG (29.0-34.0); MCHC 33.7 G/DL (30.0-36.0); MCV 108.6 FL (86-99); NRBC (%) 0.5 /100 WBC (0-0); RBC DIS.WIDTH-CV 15.9 % (11.8-14.6); RBC DIS.WIDTH-SD 63.3 % (39-53); RED BLOOD COUNT 2.79 M/uL (4.00-5.50); WHITE BLOOD COUNT 4.3 K/uL (4.1-10.2)
[2017-07-26 12:55] LABS: PLATELET COUNT 61 K/uL (156-360)
[2017-07-26 22:27] VITALS: BP 120/74
== END 2017-07-26 22:31 | disposition home or self-care (01) ==
LOC: EME 10:28
PROVIDERS: Physician Assistant
PROC: 0W9G3ZZ Drainage of Peritoneal Cavity, Percutaneous Approach (ICD-10-PCS; principal; 2017-07-26)
DX: R18.8 Other ascites (principal); K74.60 Unspecified cirrhosis of liver; K72.90 Hepatic failure, unspecified without coma; R06.00 Dyspnea, unspecified; Z85.038 Personal history of other malignant neoplasm of large intestine; Z90.49 Acquired absence of other specified parts of digestive tract; Z87.442 Personal history of urinary calculi; F17.200 Nicotine dependence, unspecified, uncomplicated
CPT/HCPCS: 49083; 85027; 85610; 85730; 99281; 99285

== ENCOUNTER → 2017-08-09 | Outpatient (CLI) | payer BC | END | disposition home or self-care (01) | LOC: RAD 08:09 | PROC: 0W9G3ZZ Drainage of Peritoneal Cavity, Percutaneous Approach (ICD-10-PCS; principal; 2017-08-09) | DX: R18.8 Other ascites (principal) | CPT/HCPCS: 49083; P9047 ==

== ENCOUNTER → 2017-08-21 | Outpatient (CLI) | payer BC ==
[~2017-08-21] MED LIST changes: +LASIX20 MG PO
== END | disposition home or self-care (01) ==
LOC: RAD 08:10
PROC: 0W9G3ZZ Drainage of Peritoneal Cavity, Percutaneous Approach (ICD-10-PCS; principal; 2017-08-21)
DX: R18.8 Other ascites (principal)
CPT/HCPCS: 49083; P9047

== ENCOUNTER → 2017-09-10 | Outpatient (CLI) | payer BC | END | disposition home or self-care (01) | LOC: RAD 09-04 08:30 | PROC: 0W9G3ZZ Drainage of Peritoneal Cavity, Percutaneous Approach (ICD-10-PCS; principal; 2017-09-10) | DX: R18.8 Other ascites (principal) | CPT/HCPCS: 49083; P9047 ==

== ENCOUNTER → 2017-09-24 | Outpatient (CLI) | payer BC ==
[~2017-09-24] MED LIST changes: +ALDACTONE100 MG PO
== END | disposition home or self-care (01) ==
LOC: RAD 08:15
PROC: 0W9G3ZZ Drainage of Peritoneal Cavity, Percutaneous Approach (ICD-10-PCS; principal; 2017-09-24)
DX: R18.8 Other ascites (principal)
CPT/HCPCS: 49083; P9047

== ENCOUNTER → 2017-10-08 | Outpatient (CLI) | payer BC | END | disposition home or self-care (01) | LOC: RAD 08:03 | PROC: 0W9G3ZZ Drainage of Peritoneal Cavity, Percutaneous Approach (ICD-10-PCS; principal; 2017-10-08) | DX: R18.8 Other ascites (principal) | CPT/HCPCS: 49083; P9047 ==